=== PATIENT | male | born 1960 | race African-American/Black ===

== ENCOUNTER 2017-03-07 11:24 | Emergency (ER) | payer OTHER ==
[~2017-03-07] VITALS: Ht 177.8 cm; Wt 95.3 kg
[2017-03-07] MEDS ORDERED: NORCO 10/3251 EA ORAL (11:36)
[2017-03-07] MEDS ORDERED: METRONIDAZOLE500 MG ORAL (11:36)
[2017-03-07] MEDS ORDERED: LEVSIN-SL0.125 MG SL (11:36)
[2017-03-07] MEDS ORDERED: AMOXICILLIN500 MG ORAL (11:36)
[2017-03-07] MEDS ORDERED: BISACODYL5 MG ORAL (11:36)
[2017-03-07] MEDS ORDERED: METHOCARBAMOL750 MG ORAL (11:36)
[2017-03-07] MEDS ORDERED: DOCUSATE SODIU100 MG ORAL (11:36)
[2017-03-07] MEDS ORDERED: FERROUS SULFAT325 MG ORAL (11:36)
[2017-03-07 12:23] LABS: APPEARANCE,URINE CLEAR; BILIRUBIN, URINE NEGATIVE (NEGATIVE); COLOR,URINE PALE YELLOW; GLUCOSE, URINE (UA) NEGATIVE (NEGATIVE); KETONES,URINE NEGATIVE (NEGATIVE); LEUKOCYTE ESTERASE ,URINE NEGATIVE (NEGATIVE); NITRITE,URINE NEGATIVE (NEGATIVE); PH,URINE 8 (4.5-8.0); PROTEIN,URINE NEGATIVE (NEGATIVE); UROBILINOGEN,URINE NORMAL MG/DL (0.0-1.0)
[2017-03-07 12:28] LABS: EOSINOPHILS % (AUTO) 3.8 % (0.0-3.0); HEMATOCRIT 42.1 % (42.0-52.0); HEMOGLOBIN 13.4 G/DL (14.2-18.0); LYMPHOCYTES % (AUTO) 34.8 % (20.0-45.0); MEAN CORPUSCULAR VOLUME 88 FL (80-99); MONOCYTES % (AUTO) 6.5 % (1.0-10.0); NEUTROPHILS % (AUTO) 52.9 % (45.0-75.0); PLATELET COUNT 446 K/UL (150-450); RED BLOOD COUNT 4.77 M/UL (4.70-6.10); WHITE BLOOD COUNT 7.7 K/UL (4.8-10.8)
[2017-03-07 12:40] LABS: ANION GAP 9 mmol/L (5-15); BLOOD UREA NITROGEN 14 mg/dL (7-18); CALCIUM 9.2 MG/DL (8.5-10.1); CARBON DIOXIDE 27 MMOL/L (21-32); CHLORIDE 104 MMOL/L (98-107); CREATININE 1.4 MG/DL (0.55-1.30); POTASSIUM 4.3 MMOL/L (3.5-5.1); SODIUM 140 MMOL/L (136-145)
[2017-03-07 12:44] LABS: ALANINE AMINOTRANSFERASE 42 U/L (12-78); ALBUMIN 3.5 G/DL (3.4-5.0); ALBUMIN/GLOBULIN RATIO 0.9 (1.0-2.7); ALKALINE PHOSPHATASE 51 U/L (46-116); ASPARTATE AMINO TRANSFERASE 23 U/L (15-37); BILIRUBIN,TOTAL 0.3 MG/DL (0.2-1.0)
--- NOTE | 2017-03-07 13:08 | Diagnostic Imaging Report ---
Indication: Dyspnea Comparison: None A single view chest radiograph was obtained. Findings: Cardiomediastinal appearance is within normal limits for age. Pulmonary vascularity is appropriate. The diaphragmatic contour is smooth and costophrenic angles are sharp. No pleural effusions are identified. The bones are unremarkable. Impression: No acute findings
[2017-03-07 14:50] VITALS: BP 141/93
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
[2017-03-07 20:10] VITALS: BP 141/93
--- NOTE | 2017-03-10 15:10 | Cardiology Report ---
APPROVED REPORT EKG Measurement Heart [id number] [address] Nonspecific ST and T wave abnormality Abnormal ECG
== END 2017-03-07 16:00 | disposition short-term general hospital (02) ==
LOC: EMR 12:07
DX: K57.32 Diverticulitis of large intestine without perforation or abscess without bleeding (principal)
CPT/HCPCS: 36415; 71045; 80053; 81003; 83690; 84484; 85025; 85610; 85730; 86850; 86900; 86901; 93005; 96374; 99285; J2405